=== PATIENT | female | born 1990 | race Two or more races ===

== ENCOUNTER 2024-05-02 13:18 | Emergency (ER) | payer OTHER ==
[~2024-05-02] VITALS: Ht 157.5 cm; Wt 84.2 kg
[2024-05-02 14:20] VITALS: BP 134/83; PULSE 85; RESP 18; TEMP 98; O2SAT 99
[2024-05-02] MEDS: KETOROLAC TROMETH 30 MG/ML 1ML VIAL IM ONE (15:10)
[2024-05-02] MEDS: methylPREDNISolone SOD SUCC 125 MG/2 ML VL IM ONE (15:10)
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
[2024-05-02] MEDS ORDERED: CYCL-837 PO (15:22)
[2024-05-02] MEDS ORDERED: MIDAZOLAM HCL 5 MG/ML-1ML VIAL ONE (16:32)
== END 2024-05-02 15:30 | disposition home or self-care (01) ==
LOC: ER 13:18
DX: S13.4XXA Sprain of ligaments of cervical spine, initial encounter (principal); S16.1XXA Strain of muscle, fascia and tendon at neck level, initial encounter; V89.2XXA Person injured in unspecified motor-vehicle accident, traffic, initial encounter; Y93.I9 Activity, other involving external motion; Y92.488 Other paved roadways as the place of occurrence of the external cause; Y99.8 Other external cause status
CPT/HCPCS: 96372; 99284; J1885; J2919; J2250